=== PATIENT | female | born 1945 | race Caucasian/White ===

== ENCOUNTER 2017-10-02 13:48 | Emergency (ER) | payer OTHER ==
[2017-10-02] MEDS ORDERED: NS 1,000 ML IV ONE (14:07)
[2017-10-02] MEDS ORDERED: ONDANSETRON 4 MG/2 ML VIAL IVP ONE (14:07)
--- NOTE | 2017-10-02 14:12 | EDPHY ---
H & P Time Seen by Provider: 10/02/17 14:00 HPI/ROS: CHIEF COMPLAINT: Altered mental status HISTORY OF PRESENT ILLNESS: The patient is a 71-year-old female who is brought to the emergency department by her son for altered mental status. The patient has had a mild cough for the last 2 days. Today about 1:15 p.m. she had a significant coughing fit. After which she complained of a mild headache and her son felt that she was confused. She is alert but has trouble remembering who the president is or what day of the week it is or where her is etc. She does know her name an age and month. She is able to remember once told. No fevers. No urinary complaints. No nausea vomiting. No loss of consciousness. She does have a remote history of breast cancer status post bilateral mastectomy. She has not had any recent medication changes. No substance abuse . REVIEW OF SYSTEMS: Constitutional: denies: chills, fever, recent illness, recent injury EENTM: denies: blurred vision, double vision, nose congestion Respiratory: denies: cough, shortness of breath Cardiac: denies: chest pain, irregular heart rate, lightheadedness, palpitations Gastrointestinal/Abdominal: denies: abdominal pain, diarrhea, nausea, vomiting, blood streaked stools Genitourinary: denies: dysuria, frequency, hematuria, pain Musculoskeletal: denies: joint pain, muscle pain Skin: denies: lesions, rash, jaundice, bruising Neurological: See HPI denies: numbness, paresthesia, tingling, dizziness, weakness Hematologic/Lymphatic: denies: blood clots, easy bleeding, easy bruising Immunologic/allergic: denies: HIV/AIDS, transplant - Physical Exam General Appearance: WD/WN, mild distress Eyes, Ears, Nose, Throat Exam: PERRL/EOMI, normal ENT inspection, pharynx normal Neck: non-tender, full range of motion, supple, normal inspection. No: stiff neck, tender lateral Cardiovascular/Chest: normal peripheral pulses, regular rate, rhythm Respiratory: chest non-tender, lungs clear, normal breath sounds. No: crackles , rhonchi Gastrointestinal/Abdominal: normal bowel sounds, non tender, soft Back Exam: normal inspection Extremity: normal range of motion, non-tender, normal inspection Mental Status: alert, oriented x 2, disoriented to day of the week NIH stroke score 0 CN's Exam: normal hearing, normal speech, PERRL, normal eye position, normal gag reflex, normal pupil position, normal speech. No: facial asymmetry, facial droop, facial paresthesias, gaze palsy, tongue deviation to R, tongue deviation to L Coordination/Gait: normal finger to nose, normal gait Motor/Sensory: normal. No: motor deficit, sensory deficit, pronator drift (R), pronator drift (L), weak motor strength RUE, weak motor strength LUE, weak motor strength RLE, weak motor strength LLE DTR: tricep (R): 2+, tricep (L): 2+, knee (R): 2+, knee (L): 2+ Skin Exam: warm/dry, normal color Lymphatic: no adenopathy Source: Patient Exam Limitations: No limitations - Medical/Surgical History Hx Asthma: No Hx Chronic Respiratory Disease: No Hx Diabetes: No Hx Cardiac Disease: No Hx Renal Disease: No Hx Cirrhosis: No Hx Alcoholism: No Other PMH: Breast cancer post bilateral mastectomy - Family History Significant Family History: No pertinent family hx - Social History Smoking Status: Never smoked Alcohol Use: None Drug Use: None Constitutional: Initial Vital Signs Temperature (C) 36.6 C 10/02/17 14:00 Heart Rate 91 10/02/17 14:00 Respiratory Rate 18 10/02/17 14:00 Blood Pressure 189/122 H 10/02/17 14:00 O2 Sat (%) 96 10/02/17 14:00 O2 Delivery Mode Room Air Allergies/Adverse Reactions: No Known Allergies Allergy (Unverified 10/02/17 15:02) Home Medications: Medication Instructions Recorded NK [No Known Home Meds] 10/02/17 Medical Decision Making - Diagnostics EKG Interpretation: An EKG obtained and was read and documented in trace view. Please see trace view for full reading and report. Sinus rhythm, no acute ischemic changes Imaging: Discussed imaging studies w/ call center support representative Radiologist ED Course/Re-evaluation: 3:05 p.m. I discussed the case with Dr. Mott for Neurosurgery. The OR relayed the message. He agrees with admission to the ICU at [facility] and blood pressure management. Patient is stable. We have paged [facility]. 3:10 p.m. I discussed the case with Dr. Mendoza the hospitalist at [place] who accepted her to the [facility]. After labetalol her blood pressure is now 145/80. Differential Diagnosis: Partial list of the Differential diagnosis considered include but were not limited to; intracranial hemorrhage, CVA, migraine, electrolyte abnormality and although unlikely based on the history and physical exam, I also considered urinary tract infection, pneumonia, sinusitis, abscess, mass. - Data Points Laboratory Results: Laboratory Results 10/02/17 14:24 10/02/17 14:24 Medications Given: Discontinued Medications Sodium Chloride (Ns) 1,000 mls @ 0 mls/hr IV ONCE ONE; Wide Open PRN Reason: Protocol Stop: 10/02/17 14:08 Last Admin: 10/02/17 14:43 Dose: 1,000 mls Labetalol HCl (Trandate Injection) 5 mg IVP EDNOW ONE Stop: 10/02/17 14:57 Last Admin: 10/02/17 15:03 Dose: 5 mg Ondansetron HCl (Zofran) 4 mg IVP EDNOW ONE Stop: 10/02/17 14:08 Last Admin: 10/02/17 15:03 Dose: 4 mg Departure - Departure Disposition: Acute Care Hospital Not [facility] Clinical Impression: Intracranial hemorrhage Condition: Critical Referrals: DALE RAY [Primary Care Provider] - As per Instructions
[2017-10-02 14:15] VITALS: RESP 18; TEMP 97.9
--- NOTE | 2017-10-02 14:20 | CPEKG ---
Heart Rate: 90 RR Interval: 667 P-R Interval: 156 QRSD Interval: 76 QT Interval: 384 QTC Interval: 470 P Redfield: 56 QRS Redfield: -8 T Wave Redfield: -38 EKG Severity - ABNORMAL ECG - EKG Impression: SINUS RHYTHM EKG Impression: PROBABLE LEFT ATRIAL ABNORMALITY EKG Impression: ABNRM R PROG, CONSIDER ASMI OR LEAD PLACEMENT Electronically Signed By: Vincent Mansfield 02-Oct-2017 14:26:29
[2017-10-02 14:27] LABS: % IMMATURE GRANULYOCYTES 0.1 % (0.0-1.1); ABSOLUTE IMMATURE GRANULOCYTES 0.01 10^3/uL (0.00-0.10); ADD DIFF? NO; ADD MORPH? NO; ADD SCAN? NO; ATYPICAL LYMPHOCYTE FLAG 40 (0-99); FRAGMENT RBC FLAG 0 (0-99); HEMOGLOBIN 15.2 g/dL (12.6-16.3); LEFT SHIFT FLG 0 (0-99); LIPEMIA HEMOLYSIS FLAG 90 (0-99); MEAN CELL HEMOGLOBIN CONCENTR. 34.5 g/dL (32.4-36.7); MEAN CELL VOLUME 86.8 fL (81.5-99.8); MEAN PLATELET VOLUME 9.4 fL (8.7-11.7); PLATELET CLUMPS FLAG 0 (0-99); PLATELET COUNT 270 10^3/uL (150-400); RED BLOOD CELL COUNT 5.07 10^6/uL (4.18-5.33); RED CELL DISTRIBUTION WIDTH 12.1 % (11.5-15.2)
[2017-10-02 14:35] LABS: INR 0.99 (0.83-1.16)
[2017-10-02 14:41] LABS: COLOR PALE YELLOW
[2017-10-02 14:42] LABS: LEUKOCYTE ESTERASE,URINE NEGATIVE (NEGATIVE); NITRITE,URINE NEGATIVE (NEGATIVE)
[2017-10-02 14:45] LABS: ALANINE AMINOTRANSFERASE 41 IU/L (9-52); ALBUMIN 4.6 g/dL (3.5-5.0); ALKALINE PHOSPHATASE 120 IU/L (38-126); ANION GAP 17 mEq/L (8-16); ASPARTATE AMINOTRANSFERASE 32 IU/L (14-46); BILIRUBIN,TOTAL 0.4 mg/dL (0.1-1.4); BILIRUBIN-CONJUGATED 0.1 mg/dL (0.0-0.5); BILIRUBIN-UNCONJUGATED 0.3 mg/dL (0.0-1.1); CALCIUM 9.7 mg/dL (8.5-10.4); CARBON DIOXIDE 25 mEq/l (22-31); CHLORIDE 102 mEq/L (97-110); CREATININE 0.8 mg/dL (0.6-1.0); GLOMERULAR FILTRATION RATE > 60; GLUCOSE 119 mg/dL (70-100); POTASSIUM 3.8 mEq/L (3.5-5.2); SODIUM 144 mEq/L (134-144); TOTAL PROTEIN 7.7 g/dL (6.3-8.2)
[2017-10-02 14:46] LABS: ETHANOL SERUM < 10 mg/dL (0-10)
[2017-10-02 14:47] LABS: BACTERIA TRACE /hpf (NONE SEEN); MUCUS TRACE /lpf (NONE-1+); RBC,URINE NONE SEEN /hpf (0-3); WBC,URINE NONE SEEN /hpf (0-3)
[2017-10-02] MEDS ORDERED: LABETALOL HCL 5 MG/ML 20 ML MDV IVP ONE (14:56)
[2017-10-02 17:41] VITALS: BP 148/89; PULSE 75; O2SAT 96
== END 2017-10-02 16:44 | disposition short-term general hospital (02) ==
LOC: CED 13:48
DX: I62.9 Nontraumatic intracranial hemorrhage, unspecified (principal); E86.9 Volume depletion, unspecified; Z85.3 Personal history of malignant neoplasm of breast
CPT/HCPCS: 70450; 71020; 93005; 96361; 96374; 96375; 99285; J2405; J3490; 80048-PO; 80076-PO; 80307-PO; 81003-PO; 81015-PO; 83605-PO; 85025-PO; 85610-PO; 85730-PO; G0480